=== PATIENT | female | born 1985 | race Caucasian/White ===

== ENCOUNTER → 2017-09-27 | Outpatient (CLI) | payer OTHER ==
[2017-09-28 22:08] LABS: MICRO CREAT RATIO 26.7 mg/g creat (0.0-30.0); MICROALB RD UR 70.5 ug/mL (Not Estab.)
[2017-10-01 16:13] LABS: CHLAMYDIA PROBE Negative (Negative)
== END | disposition home or self-care (01) ==
LOC: SPEC 09:44
DX: Z11.3 Encounter for screening for infections with a predominantly sexual mode of transmission (principal)
CPT/HCPCS: 36415; 82043; 82570; 87480; 87491; 87510; 87591; 87660

== ENCOUNTER 2019-08-25 20:44 | Emergency (ER) | payer SELFPAY ==
[~2019-08-25] VITALS: Ht 160 cm; Wt 85.0 kg
--- NOTE | 2019-08-25 21:17 | PHYS DOC ---
Past History Past Medical History: Depression, Diabetes, Other Additional Past Medical Histor: peripheral neuropathy Past Surgical History: Tubal ligation Smoking: Cigarettes Alcohol Use: None Drug Use: Marijuana, Methamphetamine General Adult EDM: Chief Complaint: TOE PROBLEM HPI: HPI: Patient is a 34 year old female who presents for evaluation of bilateral great toe redness, injury and swelling. Patient has some bruising and a blood collection around the right great toe nailbed. Patient states she does not currently have a car and does a lot of walking. Risk factors include diabetes along with peripheral neuropathy. Patient denied other injuries. Review of Systems: Review of Systems: Constitutional: Denies fever or chills Eyes: Denies change in visual acuity HENT: Denies nasal congestion or sore throat Respiratory: Denies cough or shortness of breath Cardiovascular: Denies chest pain or edema GI: Denies abdominal pain, nausea, vomiting, bloody stools or diarrhea : Denies dysuria Musculoskeletal: Denies back pain, bilateral great toe pain noted Integument: Denies rash. Abrasions to both toes Neurologic: Denies headache, focal weakness or sensory changes Endocrine: Denies polyuria or polydipsia Lymphatic: Denies swollen glands Psychiatric: Denies depression or anxiety Heart Score: Risk Factors: Risk Factors: DM, Current or recent (<one month) smoker, HTN, HLP, family history of CAD, obesity. Risk Scores: Score 0 - 3: 2.5% MACE over next 6 weeks - Discharge Home Score 4 - 6: 20.3% MACE over next 6 weeks - Admit for Clinical Observation Score 7 - 10: 72.7% MACE over next 6 weeks - Early Invasive Strategies Allergies: Allergies: Allergies Coded Allergies Type Severity Reaction Last Updated Verified No Known Drug Allergies 08/25/19 No Physical Exam: PE: Constitutional: Well developed, well nourished, mild acute distress, non-toxic appearance. [] HENT: Normocephalic, atraumatic, bilateral external ears normal, oropharynx moist, no oral exudates, nose normal. [] Eyes: PERRL, EOMI, conjunctiva normal, no discharge. [] Neck: Normal range of motion, no tenderness, supple, no stridor. [] Cardiovascular:Heart rate regular rhythm, no murmur [] Lungs & Thorax: Bilateral breath sounds clear to auscultation [] Abdomen: Bowel sounds normal, soft, no tenderness, no masses, no pulsatile mass es. [] Skin: Warm, dry, abrasions of both great toes,. [] Back: No tenderness, no CVA tenderness. [] Extremities: mild tenderness to both great toes, no cyanosis, no clubbing, ROM intact, hematoma right great toe nailbed [] Neurologic: Alert and oriented X 3, normal motor function, normal sensory function, no focal deficits noted. [] Psychologic: Affect normal, judgement normal, anxious mood. [] Current Patient Data: Labs: Laboratory Tests Test 08/25/19 21:16 08/25/19 21:35 White Blood Count 9.8 x10^3/uL Red Blood Count 4.45 x10^6/uL Hemoglobin 13.5 g/dL Hematocrit 39.5 % Mean Corpuscular Volume 89 fL Mean Corpuscular Hemoglobin 30 pg Mean Corpuscular Hemoglobin Concent 34 g/dL Red Cell Distribution Width 13.1 % Platelet Count 321 x10^3/uL Neutrophils (%) (Auto) 52 % Lymphocytes (%) (Auto) 39 % Monocytes (%) (Auto) 6 % Eosinophils (%) (Auto) 2 % Basophils (%) (Auto) 0 % Neutrophils # (Auto) 5.1 x10^3uL Lymphocytes # (Auto) 3.8 x10^3/uL Monocytes # (Auto) 0.6 x10^3/uL Eosinophils # (Auto) 0.2 x10^3/uL Basophils # (Auto) 0.0 x10^3/uL Sodium Level 141 mmol/L Potassium Level 2.9 mmol/L Chloride Level 104 mmol/L Carbon Dioxide Level 27 mmol/L Anion Gap 10 Blood Urea Nitrogen 15 mg/dL Creatinine 0.9 mg/dL Estimated GFR (Cockcroft-Gault) 71.3 BUN/Creatinine Ratio 17 Glucose Level 124 mg/dL Calcium Level 9.2 mg/dL Total Bilirubin 0.4 mg/dL Aspartate Amino Transf (AST/SGOT) 28 U/L Alanine Aminotransferase (ALT/SGPT) 31 U/L Alkaline Phosphatase 90 U/L Total Protein 8.1 g/dL Albumin 3.7 g/dL Albumin/Globulin Ratio 0.8 Glucose (Fingerstick) 124 mg/dL Current Medications Medications (Trade) Dose Ordered Sig/Rudolph Route PRN Reason Start Time Stop Time Status Last Admin Dose Admin Clindamycin Phosphate 50 ml @ 100 mls/hr 1X ONCE IV 08/25/19 21:30 08/25/19 21:59 DC 08/25/19 21:36 Bacitracin (Bacitracin Topical Pkt) 1 pkt 1X ONCE TP 08/25/19 22:15 08/25/19 22:19 DC Potassium Chloride (Klor-Con) 40 meq 1X ONCE PO 08/25/19 22:15 08/25/19 22:19 DC Vital Signs: Vital Signs Date Time Temp Pulse Resp B/P (MAP) Pulse Ox O2 Delivery O2 Flow Rate FiO2 08/25/19 21:00 97.0 111 20 133/91 (105) 97 Room Air EKG: EKG: [] Radiology/Procedures: Radiology/Procedures: [place] [id number] IMAGING REPORT Signed PATIENT: KATHY BAEZ ACCOUNT: [id number] : 1985 LOCATION: ER AGE: 34 SEX: F EXAM STATUS: REG ER ORD. PHYSICIAN: SHANIQUE TORRES DO REASON: Bilateral feet pain, recent falls. Hx: Neuropathy PROCEDURE: FOOT BILAT 3V FOOT BILAT 3V History: Reason: Bilateral feet pain, recent falls. Hx: Neuropathy / Spl. Instructions: / History: Technique: 3 views bilateral feet. Comparison: None. Findings: Right foot: Normal alignment. No fracture. Tiny plantar calcaneal spur. Left foot: Normal alignment. No fracture. Tiny plantar calcaneal spur. Impression: 1. No acute osseous abnormality. Electronically signed by: Ever Wiley DO (08/25/2019 9:36 PM) [facility] DICTATED AND SIGNED BY: VEER WILEY DO DATE: 08/25/192135 CC: PCP,UNKNOWN; SHANIQUE TORRES DO ~ [] Course & Med Decision Making: Course & Med Decision Making Pertinent Labs and Imaging studies reviewed. (See chart for details) [] Dragon Disclaimer: Dragon Disclaimer: This electronic medical record was generated, in whole or in part, using a voice recognition dictation system. Departure Departure: Impression: Primary Impression: Paronychia Additional Impressions: Abrasion foot/toe Methamphetamine use Hyperglycemia Hypokalemia Disposition: HOME/RESIDENCE PRIOR TO ADM Condition: STABLE Referrals: PCP,UNKNOWN (PCP) SABRINA JOE MD Patient Instructions: Cellulitis, Msny-ta-Meln, Diabetes and Foot Care, Hypokalemia-Brief, Paronychia, [id number] Additional Instructions: Daily triple antibiotic to open wounds on both toes for the next 5 to 7 days, take antibiotic as directed, have your doctor recheck the wounds in the next 2 to 3 days, return if worsen Scripts Potassium Chloride (POTASSIUM CHLORIDE ) 20 Meq Tablet.er 20 MEQ PO DAILY for SUPPLEMENT for 7 Days, #7 TAB Prov: SHANIQUE TORRES DO 08/25/19 Clindamycin Hcl (CLINDAMYCIN HCL) 150 Mg Capsule 1 CAP PO QID for celllulitis for 7 Days, #28 CAP Prov: SHANIQUE TORRES DO 08/25/19 Justification of Admission: Justification of Admission: Justification of Admission Dx: N/A Incision and Drainage Incision and Drainage : Site: right great toe nailbed Blade Size: 11 I & D Procedure: sterile dressing applied Progress Serous drainage obtained from nail bed. There was swelling present of the toe. No pus. Wound cleaned and dressed SHANIQUE TORRES DO Aug 25, 2019 21:17
[2019-08-25] MEDS ORDERED: CLINDAMYCIN 600MG PREMIX 50 ML IV ONE (21:30)
--- NOTE | 2019-08-25 21:40 | RAD ---
FOOT BILAT 3V History: Reason: Bilateral feet pain, recent falls. Hx: Neuropathy / Spl. Instructions: / History: Technique: 3 views bilateral feet. Comparison: None. Findings: Right foot: Normal alignment. No fracture. Tiny plantar calcaneal spur. Left foot: Normal alignment. No fracture. Tiny plantar calcaneal spur. Impression: 1. No acute osseous abnormality. Electronically signed by: Ever Wiley DO (08/25/2019 9:36 PM) [facility]
[2019-08-25 21:43] LABS: BASO % 0 % (0-3); EOS # 0.2 x10^3/uL (0.0-0.7); EOS % 2 % (0-3); HEMATOCRIT 39.5 % (36.0-47.0); HEMOGLOBIN 13.5 g/dL (12.0-15.5); LYMPH # 3.8 x10^3/uL (1.0-4.8); LYMPH % 39 % (24-48); MEAN CORPUSCULAR HEMOGLOBIN 30 pg (25-35); MEAN CORPUSCULAR HGB CONC 34 g/dL (31-37); MEAN CORPUSCULAR VOLUME 89 fL (79-100); MONO # 0.6 x10^3/uL (0.0-1.1); MONO % 6 % (0-9); NEUT # 5.1 x10^3uL (1.8-7.7); NEUT % 52 % (31-73); PLATELET COUNT 321 x10^3/uL (140-400); RED BLOOD COUNT 4.45 x10^6/uL (3.50-5.40); RED CELL DISTRIBUTION WIDTH 13.1 % (11.5-14.5); WHITE BLOOD COUNT 9.8 x10^3/uL (4.0-11.0)
[2019-08-25 22:07] LABS: ALBUMIN 3.7 g/dL (3.4-5.0); ALBUMIN/GLOBULIN RATIO 0.8 (1.0-1.7); CALCIUM 9.2 mg/dL (8.5-10.1); CREATININE 0.9 mg/dL (0.6-1.0); GFR 71.3; TOTAL BILIRUBIN 0.4 mg/dL (0.2-1.0); TOTAL PROTEIN 8.1 g/dL (6.4-8.2)
[2019-08-25 22:14] LABS: POTASSIUM 2.9 mmol/L (3.5-5.1)
[2019-08-25] MEDS ORDERED: BACITRACIN ZINC TOPICAL OINT PACKET. TP ONE (22:15)
[2019-08-25] MEDS ORDERED: POTASSIUM CHLORIDE 20 MEQ TABLET.ER. PO ONE (22:15)
[2019-08-25] MEDS ORDERED: CLIN150C14 PO (22:25)
[2019-08-25] MEDS ORDERED: POTA20TA4 PO (22:25)
[2019-08-25 22:29] VITALS: BP 144/87
== END 2019-08-25 22:37 | disposition home or self-care (01) ==
LOC: ER 20:44
DX: S90.121A Contusion of right lesser toe(s) without damage to nail, initial encounter (principal); L03.032 Cellulitis of left toe; L03.031 Cellulitis of right toe; S90.415A Abrasion, left lesser toe(s), initial encounter; E11.65 Type 2 diabetes mellitus with hyperglycemia; F15.10 Other stimulant abuse, uncomplicated; E87.6 Hypokalemia; E11.42 Type 2 diabetes mellitus with diabetic polyneuropathy; F17.210 Nicotine dependence, cigarettes, uncomplicated; F12.10 Cannabis abuse, uncomplicated
CPT/HCPCS: 10060; 36415; 73630; 80053; 82947; 85025; 96365; 99284; J3490

== ENCOUNTER 2020-03-24 11:26 | Emergency (ER) | payer MEDICAID ==
[~2020-03-24] VITALS: Ht 160 cm; Wt 76.0 kg
[~2020-03-24 11:26] MED LIST: CLIN150C15 PO; POTA20TA4 PO
--- NOTE | 2020-03-24 11:52 | PHYS DOC ---
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 She was in the bathroom when she stood up. She passed out and landed on her sacral area and hit the back of her head. She has been healing over the past week but has persistent pain around the sacrum. She has chronic neuropathy from diabetes in her feet but denies any worsening numbness weakness or tingling. She denies perineal parest hesias,fecal or urinary incontinence. She denies any slurred speech or focal neurologic deficits or vision changes. She denies chest pain shortness of breath or unilateral leg swelling. She denies having high cholesterol hypertension or hyperlipidemia. Review of systems negative for unilateral leg swelling hemoptysis history of DVT or PE or recent surgery or immobilization. Negative for facial drooping slurred speech or dizziness. All other review of systems negative ED course: 35-year-old female presenting after syncopal episode and pain in her sacrum after a fall. EKG reviewed by myself shows sinus rhythm with a mildly tachycardic rate. ST segments congruent. Not suggestive of acute ischemia. QT within normal limits. No signs of Brugada. Not suggestive of WPW. Not suggestive of hypertrophic obstructive cardiomyopathy. Head CT unremarkable. Otherwise blood work unremarkable. Urine analysis shows a possible urinary tract infection. Will give Macrobid. CT of the sacrum shows sacral fracture nondisp laced. We will discharge patient to follow-up with spinal surgeon four outpt referral in 1 to 2 days. Allergies: Allergies: Allergies Coded Allergies Type Severity Reaction Last Updated Verified No Known Drug Allergies 03/24/20 No Physical Exam: PE: Constitutional: Well developed, well nourished, no acute distress, non-toxic appearance. [] HENT: Normocephalic, atraumatic, bilateral external ears normal, oropharynx moist, no oral exudates, nose normal. [] Eyes: PERRLA, EOMI, conjunctiva normal, no discharge. [] Neck: Normal range of motion, no tenderness, supple, no stridor. [] Cardiovascular:Heart rate regular rhythm, no murmur [] Lungs & Thorax: Bilateral breath sounds clear to auscultation [] Abdomen: Bowel sounds normal, soft, no tenderness, no masses, no pulsatile masses. [] Skin: Warm, dry, no erythema, no rash. [] Back: No tenderness, no CVA tenderness. [] Extremities: No tenderness, no cyanosis, no clubbing, ROM intact, no edema. [] Neurologic: Mental status: Awake oriented and alert x3 Cranial nerves: Extraocular movements intact, eyebrows chaya bilaterally, smile symmetric, uvula elevation nl, shoulder shrug intact bilaterally, tongue protrusion normal DTRs: 2+ in the knees. Sensation: equal and normal in all extremities Strength: 5/5 in upper and lower extremities bilaterally. 5 out of 5 strength in extension and flexion of the legs. 5 out of 5 strength in dorsiflexion and plantar flexion. Chronic sensation loss from diabetes bilaterally. No acute changes in her sensation of her feet. Psychologic: Affect normal, judgement normal, mood normal. [] Current Patient Data: Vital Signs: Vital Signs Date Time Temp Pulse Resp B/P (MAP) Pulse Ox O2 Delivery O2 Flow Rate FiO2 03/24/20 11:34 97.9 112 18 121/44 (69) 100 Room Air EKG: EKG: [] Radiology/Procedures: Radiology/Procedures: [] Heart Score: Risk Factors: Risk Factors: DM, Current or recent (<one month) smoker, HTN, HLP, family history of CAD, obesity. Risk Scores: Score 0 - 3: 2.5% MACE over next 6 weeks - Discharge Home Score 4 - 6: 20.3% MACE over next 6 weeks - Admit for Clinical Observation Score 7 - 10: 72.7% MACE over next 6 weeks - Early Invasive Strategies Course & Med Decision Making: Course & Med Decision Making Pertinent Labs and Imaging studies reviewed. (See chart for details) [] Dragon Disclaimer: Shady Disclaimer: This electronic medical record was generated, in whole or in part, using a voice recognition dictation system. Departure Departure: Impression: Primary Impression: Syncope Additional Impressions: Head injury Sacral pain Sacral fracture, closed Disposition: 01 DC HOME SELF CARE/HOMELESS Condition: STABLE Referrals: PCP,NO (PCP) Patient Instructions: Fall Prevention and Home Safety, [id number], Syncope, Tailbone Injury Additional Instructions: Follow up with Dr. Rohith Finch MD at [address] [facility] [place], [address] . call to make an appointment within 1-2 days. Scripts Nitrofurantoin Monohyd/M-Cryst (MACROBID 100 MG CAPSULE) 100 Mg Capsule 1 CAP PO BID for uti for 5 Days, #10 CAP 0 Refills Prov: LEOLA LESLIE MD 03/24/20 Cyclobenzaprine Hcl (CYCLOBENZAPRINE HCL) 5 Mg Tablet 1 TAB PO TID PRN PRN for PAIN, #12 TAB 0 Refills Prov: LEOLA LESLIE MD 03/24/20 Hydrocodone Bit/Acetaminophen (HYDROCODONE-APAP 5-325 ) 1 Each Tablet 1 TAB PO PRN Q6HRS PRN for PAIN for 5 Days, #6 TAB 0 Refills Caution: this medication can make you drowsy. Do not drive or operate heavy machinery when using this medication. Prov: LEOLA LESLIE MD 03/24/20 LEOLA LESLIE MD Mar 24, 2020 11:52
[2020-03-24] MEDS ORDERED: IV NORMAL SALINE 1,000ML 1,000 ML IV ONE (12:00)
--- NOTE | 2020-03-24 12:09 | EKG ---
[address] [address] Test Date: 2020-03-24 Test Time: 11:58:22 Pat Name: KATHY BAEZ Department: Room: Gender: F Piano Mover: PRICILLA : 1985 Requested By: LEOLA LESLIE Order Number: [id number] Reading MD: Measurements Intervals [place] Rate: 99 P: 50 VT: 160 QRS: 64 QRSD: 86 T: 42 QT: 338 QTc: 439 Interpretive Statements SINUS RHYTHM NORMAL ECG RI6.02 No previous ECG available for comparison
[2020-03-24 12:26] LABS: BASO % 1 % (0-3); EOS # 0.1 x10^3/uL (0.0-0.7); EOS % 2 % (0-3); HEMATOCRIT 40.2 % (36.0-47.0); HEMOGLOBIN 13.3 g/dL (12.0-15.5); LYMPH # 2.6 x10^3/uL (1.0-4.8); LYMPH % 39 % (24-48); MEAN CORPUSCULAR HEMOGLOBIN 30 pg (25-35); MEAN CORPUSCULAR HGB CONC 33 g/dL (31-37); MEAN CORPUSCULAR VOLUME 91 fL (79-100); MONO # 0.4 x10^3/uL (0.0-1.1); MONO % 6 % (0-9); NEUT # 3.5 x10^3uL (1.8-7.7); NEUT % 53 % (31-73); PLATELET COUNT 291 x10^3/uL (140-400); RED BLOOD COUNT 4.43 x10^6/uL (3.50-5.40); RED CELL DISTRIBUTION WIDTH 13.4 % (11.5-14.5); WHITE BLOOD COUNT 6.6 x10^3/uL (4.0-11.0)
[2020-03-24] MEDS ORDERED: CYCLOBENZAPRINE 10 MG TABLET. ONE (12:30)
[2020-03-24] MEDS ORDERED: CYCLOBENZAPRINE 10 MG TABLET. PO ONE (12:30)
--- NOTE | 2020-03-24 12:34 | RAD ---
CT HEAD/BRAIN WO Date: 03/24/2020 12:07 PM Clinical Indication: Reason: syncope / Spl. Instructions: / History: Comparison: None. Technique: 5 mm axial tomographic images were obtained of the head without contrast. These were view ed on brain and bone windows. One or more of the following dose reduction techniques were utilized: A utomated exposure control (AEC), Adjustment of mA and/or kV according to patient size, Use of iterati ve reconstruction technique such as ASiR, CT scan done according to ALARA and image gently/image seymour ly Findings: The brain parenchyma is normal in attenuation. No intra- or extra-axial mass or fluid collection. No acute hemorrhage. The ventricles are normal in size, shape, and morphology. The gottlieb-white matter laurent ction is normal. The subarachnoid cisterns are patent. The visualized paranasal sinuses are normal. The visualized portions of the orbits and globes are no rmal. The mastoid air cells are clear. The stockbroker topogram shows no lytic lesion or fracture. Impression: No acute intracranial process. Electronically signed by: Cy Corley MD (03/24/2020 12:31 PM) [id number]
[2020-03-24 12:37] LABS: CREATININE 0.8 mg/dL (0.6-1.0); GFR 81.2; POTASSIUM 4.3 mmol/L (3.5-5.1)
[2020-03-24 12:40] LABS: BACTERIA,URINE MOD /HPF (0-FEW); BILIRUBIN,URINE NEG (NEG); CLARITY,URINE CLOUDY; COLOR,URINE YELLOW; GLUCOSE,URINE NEG (NEG); NITRITE,URINE NEG (NEG); SQUAMOUS EPITHELIAL CELL,UR MANY /LPF; UROBILINOGEN,URINE 0.2 mg/dL (0.2 mg/dL)
[2020-03-24 12:41] LABS: HYALINE CASTS, URINE OCC /HPF
--- NOTE | 2020-03-24 12:41 | RAD ---
CT LUMBAR SPINE WO Date: 03/24/2020 12:07 PM Indication: syncope, pain Comparison: None. Technique: Helical CT images of the lumbar spine were obtained without contrast. Coronal and sagitta l reformatted images were also performed. One or more of the following dose reduction techniques were utilized: Automated exposure control (AEC), Adjustment of mA and/or kV according to patient size, Us e of iterative reconstruction technique such as ASiR, CT scan done according to ALARA and image gentl y/image wisely. Findings: Nondisplaced fracture of the sacral body S3 segment extending to the posterior elements. No acute lumbar spine fracture. Trace anterolisthesis at L5-S1. Left L5 pars defect. Vertebral body heights are maintained without co mpression deformity. The intervertebral disc spaces are normal. No high grade spinal canal stenosis or neuroforaminal narrowing. No soft tissue abnormality within the visualized abdomen or pelvis. The visualized abdominal aorta is normal caliber. IMPRESSION: 1. Nondisplaced fracture of the sacral body S3 segment extending to the posterior elements. 2. No acute lumbar spine fracture. Electronically signed by: Cy Corley MD (03/24/2020 12:38 PM) [id number]
[2020-03-24] MEDS ORDERED: HYDR-2155 PO (12:48)
[2020-03-24] MEDS ORDERED: CYCL5TAB PO (12:48)
[2020-03-24] MEDS ORDERED: NITR100C62 PO (12:53)
--- NOTE | 2020-03-24 12:53 | RAD ---
XR SACRUM AND COCCYX 2+VIEWS (AP and lateral): DATE: 03/24/2020 12:07 PM INDICATION: Reason: fall with sacral pain / Spl. Instructions: / History: COMPARISON: None. FINDINGS: Bones: Nondisplaced sacral body S3 segment fracture seen best on concurrent CT L-spine SI joints and symphysis pubis are maintained. Pelvic phleboliths. IMPRESSION: Nondisplaced sacral body S3 segment fracture seen best on concurrent CT L-spine Electronically signed by: Cy Corley MD (03/24/2020 12:50 PM) [id number]
[2020-03-24] MEDS ORDERED: IOHEXOL 350 MG/ML 100 ML VIAL. IV ONE (13:15)
--- NOTE | 2020-03-24 13:38 | RAD ---
EXAM: CT Pulmonary Angiogram INDICATION: Reason: elevated dimer/syncope r/o pe 100cc omni 350 / Spl. Instructions: / History: TECHNIQUE: Multi-detector row images were acquired from the thoracic inlet through the upper abdomen with the use of IV contrast. Sagittal and coronal images were acquired from the transaxial data. OR P images of the pulmonary arteries were obtained. All CT scans performed at this facility utilize dos e optimization techniques as appropriate to the exam, including the following: Automated exposure con trol and adjustment of the mA and/or KV according to patient size (this includes techniques or standa rdized protocols for targeted exams where dose is indication/reason for exam). IV CONTRAST: Administered COMPARISON: None FINDINGS: PULMONARY ARTERIES: No pulmonary emboli are identified. CARDIOVASCULAR: Unremarkable Aorta is normal caliber. MEDIASTINUM & VICTORIA: No adenopathy or masses. LUNGS: No pulmonary infiltrate, nodule, or other focal abnormality. PLEURAL SPACE: No pleural effusions or pneumothorax. OSSEOUS & SOFT TISSUE: Unremarkable ABDOMEN: The visualized portions of the upper abdomen are unremarkable. IMPRESSION: Normal CT pulmonary angiogram. Electronically signed by: Shannon Schwarz MD (03/24/2020 1:36 PM) [id number]
[2020-03-24 13:55] VITALS: BP 104/75
== END 2020-03-24 14:05 | disposition home or self-care (01) ==
LOC: ER 11:26
DX: S32.16XA Type 3 fracture of sacrum, initial encounter for closed fracture (principal); S09.90XA Unspecified injury of head, initial encounter; R55 Syncope and collapse; F41.9 Anxiety disorder, unspecified; F32.9 Major depressive disorder, single episode, unspecified; E11.40 Type 2 diabetes mellitus with diabetic neuropathy, unspecified; I10 Essential (primary) hypertension; W18.39XA Other fall on same level, initial encounter; Y93.89 Activity, other specified; Y92.091 Bathroom in other non-institutional residence as the place of occurrence of the external cause; Y99.8 Other external cause status
CPT/HCPCS: 36415; 70450; 71275; 72131; 72220; 80048; 81001; 81025; 84484; 85025; 85379; 87086; 93005; 96360; 99285; J7030; Q9967

== ENCOUNTER 2020-09-05 18:02 | Observation (INO) | payer MEDICAID ==
[~2020-09-05] VITALS: Ht 160 cm; Wt 75.7 kg
[~2020-09-05 18:02] MED LIST changes: +CYCL5TAB PO; +HYDR-2155 PO; +NITR100C62 PO
--- NOTE | 2020-09-05 18:58 | PHYS DOC ---
Past History Past Medical History: Anxiety, Depression, Diabetes, Hypertension, Other Additional Past Medical Histor: neuropathy, Hep C (ROBERT OROURKE APRN) Past Surgical History: No Surgical History (ROBERT OROURKE APRN) Smoking: Non-smoker Alcohol Use: None (ROBERT OROURKE APRN) General Adult EDM: Chief Complaint: DRUG ABUSE HPI: HPI: Patient is a 35-year-old female who presents with mom for drug abuse. Mom brought patient in because she has been using methamphetamines. Patient is unable to sit still and is all over the bed in the room. Patient states "I don't need to go to rehab I'm fine, I used methamphetamines for the first time last night since February". Patient is denying SI or HI. (ROBERT OROURKE APRN) Review of Systems: Review of Systems: Constitutional: Denies fever or chills Eyes: Denies change in visual acuity HENT: Denies nasal congestion or sore throat Respiratory: Denies cough or shortness of breath Cardiovascular: Denies chest pain or edema GI: Denies abdominal pain, nausea, vomiting, bloody stools or diarrhea : Denies dysuria Musculoskeletal: Denies back pain or joint pain Integument: Denies rash Neurologic: Denies headache, reports she is unable to sit still and feels agitated Endocrine: Denies polyuria or polydipsia Lymphatic: Denies swollen glands Psychiatric: Reports anxiety (ROBERT OROURKE APRN) Allergies: Allergies: Allergies Coded Allergies Type Severity Reaction Last Updated Verified No Known Drug Allergies 03/24/20 No (ROBERT OROURKE APRN) Physical Exam: PE: Constitutional: Well developed, well nourished, no acute distress, non-toxic appearance. [] HENT: Normocephalic, atraumatic, bilateral external ears normal, oropharynx moist, no oral exudates, nose normal. [] Eyes: PERRLA, EOMI, conjunctiva normal, no discharge. [] Neck: Normal range of motion, no tenderness, supple, no stridor. [] Cardiovascular:Heart rate regular rhythm, no murmur [] Lungs & Thorax: Bilateral breath sounds clear to auscultation [] Abdomen: Bowel sounds normal, soft, no tenderness, no masses, no pulsatile masses. [] Skin: Sores all over skin from picking herself Back: No tenderness, no CVA tenderness. [] Extremities: No tenderness, no cyanosis, no clubbing, ROM intact, no edema. [] Neurologic: Alert and oriented X 3, normal motor function, normal sensory function, no focal deficits noted. [] Psychologic: Tearful, anxious, agitation (ROBERT OROURKE APRN) Current Patient Data: Vital Signs: Vital Signs Date Time Temp Pulse Resp B/P (MAP) Pulse Ox O2 Delivery O2 Flow Rate FiO2 09/05/20 18:20 97.5 134 24 104/75 (85) 96 Room Air (ROBERT OROURKE APRN) EKG: EKG: [] (ROBERT OROURKE APRN) EKG: My interpretation EKG shows a sinus rhythm at 97 bpm. Bimodal P waves. (MAYLIN BELL MD) Radiology/Procedures: Radiology/Procedures: [] (ROBERT OROURKE APRN) Radiology/Procedures: [place] [address] IMAGING REPORT Signed PATIENT: KATHY BAEZ ACCOUNT: [id number] : 1985 LOCATION: [address] [place] [address] AGE: 35 SEX: F EXAM STATUS: ADM IN ORD. PHYSICIAN: MAYLIN BELL MD REASON: cough PROCEDURE: CHEST AP ONLY XR CHEST 1V INDICATION: cough . COMPARISON STUDY: None. FINDINGS: Lungs: Normal lung volume. No pulmonary mass or consolidation. The tracheobronchial tree and hilar structures are normal. Pleura: No pleural effusion or pneumothorax. Heart and Mediastinum: The cardiomediastinal silhouette is normal. The great vessels of the thorax are normal. IMPRESSION: No acute cardiopulmonary process. Electronically signed by: Argentina Corley MD (09/06/2020 4:40 AM) [facility] DICTATED AND SIGNED BY: ARGENTINA CORLEY MD DATE: 09/06/20 044 CC: MAYLIN BELL MD; SAMARIA MUÑOZ MD; PCP,NO ~MTH0 0 (MAYLIN BELL MD) Heart Score: C/O Chest Pain: No Risk Factors: Risk Factors: DM, Current or recent (<one month) smoker, HTN, HLP, family history of CAD, obesity. Risk Scores: Score 0 - 3: 2.5% MACE over next 6 weeks - Discharge Home Score 4 - 6: 20.3% MACE over next 6 weeks - Admit for Clinical Observation Score 7 - 10: 72.7% MACE over next 6 weeks - Early Invasive Strategies (ROBERT OROURKE APRN) C/O Chest Pain: N/A (MAYLIN BELL MD) Course & Med Decision Making: Course & Med Decision Making Pertinent Labs and Imaging studies reviewed. (See chart for details) [] Patient is 35-year-old female presents with mom for drug abuse. Patient is unable to sit still in the bed. Patient is reporting agitation. Patient denies needing rehab. Patient given 2 mg of Ativan for anxiety and Benadryl. Patient was sleeping in room after medication administered. WBCs 17.1, creatinine 1.7. Patient given liter normal saline bolus. Transfer of patient care to Dr. Bell at 2145 (ROBERT OROURKE APRN) Course & Med Decision Making See Alda report before shift change for details. Patient continued to have altered mental status and discoordination. Dystonic discoordination. Patient reportedly has had this type of presentation of previous methamphetamine abuse episodes.. Patient has long history of methamphetamine abuse. Has past history of anxiety, depression, diabetes, hypertension, neuropathy, hep C, and noncompliance with medical regimens.. Patient reportedly had used multiple doses of methamphetamine in the last 24 hours prior to the onset of her dystonic reaction. Patient was observed in the ED for some time with minimal improvement of her dystonic discoordination. Pt. symptoms had improved, but not to point of ambulation without escrow assistant. Discussed presentation testing and treatment plan with . Agreed to admit patient for further observation and evaluation. Impression: 1. Altered mental status 2. History of methamphetamine abuse 3. Dehydration 4. Leukocytosis 17.1 5. Diabetes 163 6. Elevated BUN 35/ Creat. 1.7 (MAYLIN BELL MD) Dragon Disclaimer: Dragon Disclaimer: This electronic medical record was generated, in whole or in part, using a voice recognition dictation system. (ROBERT OROURKE APRN) Departure Departure: Referrals: PCP,NO (PCP) Attending Signature Attending Signature I have participated in the care of this patient and I have reviewed and agree with all pertinent clinical information above including history, exam, and recommendations. (MAYLIN BELL MD) Attending Signature Attending Signature I have participated in the care of this patient and I have reviewed and agree with all pertinent clinical information above including history, exam, and rec ommendations. (MAYLIN BELL MD) Dragon Disclaimer This chart was dictated in whole or in part using Voice Recognition software in a busy, high-work load, and often noisy Emergency Department environment. It may contain unintended and wholly unrecognized errors or omissions. (MAYLIN BELL MD) ROBERT OROURKE APRN Sep 05, 2020 18:58 MAYLIN BELL MD Sep 06, 2020 11:15
[2020-09-05] MEDS ORDERED: diphenhydrAMINE 50 MG/ML VIAL IVP ONE (19:15)
[2020-09-05 19:40] LABS: BASO # 0.1 x10^3/uL (0.0-0.2); BASO % 0 % (0-3); EOS # 0.2 x10^3/uL (0.0-0.7); EOS % 1 % (0-3); HEMATOCRIT 39.1 % (36.0-47.0); LYMPH # 4.5 x10^3/uL (1.0-4.8); LYMPH % 27 % (24-48); MEAN CORPUSCULAR HEMOGLOBIN 30 pg (25-35); MEAN CORPUSCULAR HGB CONC 33 g/dL (31-37); MEAN CORPUSCULAR VOLUME 90 fL (79-100); MONO # 1.6 x10^3/uL (0.0-1.1); MONO % 10 % (0-9); NEUT # 10.7 x10^3uL (1.8-7.7); NEUT % 63 % (31-73); PLATELET COUNT 327 x10^3/uL (140-400); RED BLOOD COUNT 4.36 x10^6/uL (3.50-5.40); RED CELL DISTRIBUTION WIDTH 13.9 % (11.5-14.5); WHITE BLOOD COUNT 17.1 x10^3/uL (4.0-11.0)
[2020-09-05 19:50] LABS: ALBUMIN 4.3 g/dL (3.4-5.0); CALCIUM 10.3 mg/dL (8.5-10.1); CREATININE 1.7 mg/dL (0.6-1.0); POTASSIUM 3.8 mmol/L (3.5-5.1); TOTAL BILIRUBIN 0.6 mg/dL (0.2-1.0); TOTAL PROTEIN 8.7 g/dL (6.4-8.2)
[2020-09-05 20:20] LABS: % ATYL 5 % (0-0); % BANDS 17 % (0-9); % BASOS 1 % (0-3); % LYMPHS 21 % (24-48); % MONOS 8 % (0-10); % SEGS 48 % (35-66)
[2020-09-05 20:23] LABS: PLT ESTIMATE ADEQUATE (ADEQUATE)
[2020-09-05] MEDS ORDERED: IV NORMAL SALINE 1,000ML 1,000 ML IV ONE (21:45)
[2020-09-05 22:00] LABS: BILIRUBIN,URINE SMALL (NEG); CLARITY,URINE CLEAR; COLOR,URINE YELLOW; GLUCOSE,URINE NEG (NEG)
[2020-09-05 22:01] LABS: BARBITURATES NEG (NEG); BENZODIAZEPINES NEG (NEG); CANNABINOIDS NEG (NEG); COCAINE NEG (NEG); METHADONE NEG (NEG); NITRITE,URINE NEG (NEG); OPIATES NEG (NEG); PHENCYCLIDINE NEG (NEG); UROBILINOGEN,URINE 0.2 mg/dL (0.2 mg/dL)
[2020-09-05 22:05] LABS: BACTERIA,URINE MOD /HPF (0-FEW)
[2020-09-05 22:06] LABS: HYALINE CASTS, URINE MOD /HPF; SQUAMOUS EPITHELIAL CELL,UR OCC /LPF
[2020-09-05 22:08] LABS: AMPHETAMINE/METHAMPHETAMINE POS (NEG)
[2020-09-06] MEDS ORDERED: cefTRIAXone IM 1 GM VIAL IM ONE
[2020-09-06] MEDS ORDERED: ONDANSETRON PF 4 MG/2 ML VIAL. IVP PRN (00:45)
[2020-09-06] MEDS ORDERED: ACETAMINOPHEN 325 MG TABLET PO PRN (00:45)
[2020-09-06 02:15] VITALS: BP 97/61
--- NOTE | 2020-09-06 04:43 | RAD ---
XR CHEST 1V INDICATION: cough . COMPARISON STUDY: None. FINDINGS: Lungs: Normal lung volume. No pulmonary mass or consolidation. The tracheobronchial tree and hilar st ructures are normal. Pleura: No pleural effusion or pneumothorax. Heart and Mediastinum: The cardiomediastinal silhouette is normal. The great vessels of the thorax ar e normal. IMPRESSION: No acute cardiopulmonary process. Electronically signed by: Cy Corley MD (09/06/2020 4:40 AM) [facility]
[2020-09-06 05:51] VITALS: BP 104/69
[2020-09-06] MEDS ORDERED: IPRATRPIUM/ALBUTEROL 0.5/2.5MG 3 ML NEBU. NEB SCH (08:00)
[2020-09-06] MEDS ORDERED: LIRA0.6P2 SQ (08:49)
[2020-09-06] MEDS ORDERED: GABA800T5 PO (08:49)
[2020-09-06] MEDS ORDERED: BACL20TA PO ×2 (08:49)
[2020-09-06] MEDS ORDERED: INSU100I13 SQ (08:49)
[2020-09-06] MEDS ORDERED: diphenhydrAMINE 50 MG/ML VIAL IV SCH (09:00)
[2020-09-06] MEDS ORDERED: BACLOFEN 20 MG TABLET PO STA (09:01)
[2020-09-06] MEDS ORDERED: MELOXICAM 15 MG TABLET. PO STA (09:01)
[2020-09-06] MEDS ORDERED: GABAPENTIN 400 MG CAPSULE. PO SCH (09:15)
[2020-09-06] MEDS ORDERED: GABAPENTIN 400 MG CAPSULE. PO ONE (09:30)
--- NOTE | 2020-09-06 10:06 | HP ---
ADMIT DATE: 09/06/2020 ATTENDING PHYSICIAN: Dr. Orr. SUBJECTIVE: The patient has purposeless movement consistent with tardive dyskinesia. HISTORY OF PRESENT ILLNESS: The patient is a 35-year-old female with multi-substance abuse. She has been using methamphetamine, unable to sit still. It is all over the place in the room. She has purposeless movement of her neck, hands and legs. She was given Benadryl. She was refractory to therapy and she was admitted to the hospitalist service for further treatment. PAST MEDICAL HISTORY: Significant for peripheral neuropathy, hepatitis C, multi-substance abuse, depression, anxiety, type 2 diabetes, hypertension and generalized debilitation. SOCIAL HISTORY: Smoker, methamphetamine use, alcohol use in addition. CURRENT MEDICATIONS: Reviewed. She was taking scheduled baclofen 40 mg b.i.d. along with Benadryl, Neurontin 800 mg t.i.d., Victoza, and insulin. ALLERGIES: She has no known drug allergies. FAMILY HISTORY: Noncontributory. REVIEW OF SYSTEMS: Significant for the tardive dyskinesia. She states it is due to her not taking her muscle relaxant. She has seen a neurologist before. PHYSICAL EXAMINATION: GENERAL: When I saw her, this is a young female, who appears older than her stated age. INITIAL VITAL SIGNS: Showed a blood pressure of 116/56, pulse is 90 and regular. She is afebrile. Oxygen saturation 98% on room air. HEENT: Head is without trauma. Pupils are reactive. Sclerae nonicteric. Oropharynx is clear. NECK: Supple. LUNGS: Clear. CARDIOVASCULAR: Showed regular heart tones. ABDOMEN: Soft. EXTREMITIES: Trace edema. She has significant tardive dyskinesia with purposeless movement of her neck and arms. PERTINENT LABORATORY STUDIES: Hemoglobin 13.0 gram, white count 17,100. Electrolytes within normal range. Creatinine is 1.7 mg %. Nonfasting blood sugar 124. Toxicology screen positive for methamphetamine byproducts. Urinalysis, specific gravity of 1.030. ASSESSMENT: 1. This 35-year-old female has tardive dyskinesia related to methamphetamine use. 2. Peripheral neuropathy. 3. Type 2 diabetes. 4. Anxiety with depression. 5. Polysubstance abuse. PLAN: 1. Admit to the inpatient unit. 2. IV Benadryl. 3. Diet as tolerated. 4. Continue home meds. DAPHNE/BREEZY DR: Alyssa TID: [id number]
--- NOTE | 2020-09-06 14:14 | DS ---
DATE OF DISCHARGE: 09/06/2020 ATTENDING PHYSICIAN: Dr. Orr. FINAL DISCHARGE DIAGNOSES: 1. Tardive dyskinesia. 2. Methamphetamine and substance abuse. 3. Type 2 diabetes. 4. Peripheral neuropathy. 5. Underlying depression with anxiety. HISTORY AND PHYSICAL: The patient is a 35-year-old female with frequent admissions through the ED. She has significant tardive dyskinesia related to her continued methamphetamine abuse. She was given Benadryl in the ED. They did not know what to do with her. She was still having purposeless movement. I think this is chronic in nature. She is admitted then for further treatment and evaluation. PHYSICAL EXAMINATION: Please see the dictated note. PERTINENT LABORATORY AND X-RAY STUDIES: The chest x-ray on admission was clear. There is no active process going. Lab work showed a normal CBC, white count and chemistry panel. Creatinine is slightly elevated at 1.7 mg percent, which appears to be her baseline. COURSE IN THE HOSPITAL: The patient was admitted. She was given intravenous Benadryl. Home meds were continued. When I went to see her, she had clearly active tardive dyskinesia. She did not want to be in the hospital. She wanted her meds. Therefore, I did give her morning meds and included prescriptions for baclofen 40 mg b.i.d., Neurontin 800 mg t.i.d., continuation of her Victoza as scheduled in addition Meloxicam 15 mg p.o. daily. I suggest a followup with her regular scheduled PCP for followup. She was discharged then from our hospital in stable condition with explicit drug and followup care. ZACHERY DR: Alyssa TID: [id number]
[2020-09-06] MEDS ORDERED: cefTRIAXone IM 1 GM VIAL IM SCH (21:00)
--- NOTE | 2020-09-07 21:51 | EKG ---
[address] [address] Test Date: 2020-09-05 Test Time: 21:45:51 Pat Name: KATHY BAEZ Department: Room: 125 A Gender: F Pulling Unit Floorhand: CUAUHTEMOC : 1985 Requested By: ROBERT OROURKE Order Number: [id number] Reading MD: Measurements Intervals Perry Rate: 97 P: 64 NV: 130 QRS: 63 QRSD: 90 T: 43 QT: 366 QTc: 469 Interpretive Statements SINUS RHYTHM LEFT ATRIAL ABNORMALITY ABNORMAL ECG RI6.02 No previous ECG available for comparison
== END 2020-09-06 10:45 | disposition home or self-care (01) ==
LOC: ER 18:02 → 1 SOUTH 09-06 01:23
PROVIDERS: ADMIT Hospitalist; ATTEND Hospitalist
DX: G24.01 Drug induced subacute dyskinesia (principal); G62.9 Polyneuropathy, unspecified; F41.9 Anxiety disorder, unspecified; F32.9 Major depressive disorder, single episode, unspecified; F19.10 Other psychoactive substance abuse, uncomplicated; E11.9 Type 2 diabetes mellitus without complications; R41.82 Altered mental status, unspecified; E86.0 Dehydration; I10 Essential (primary) hypertension; D72.829 Elevated white blood cell count, unspecified; F15.10 Other stimulant abuse, uncomplicated; F17.200 Nicotine dependence, unspecified, uncomplicated; Z79.899 Other long term (current) drug therapy; Z86.19 Personal history of other infectious and parasitic diseases
CPT/HCPCS: 36415; 71045; 80053; 80307; 81001; 82947; 85007; 85025; 87086; 93005; 96361; 96372; 96374; 96375; 96376; 99284; G0378; J0696; J1200; J2060; J7030; G0379